=== PATIENT | male | born 1975 | race Caucasian/White ===

== ENCOUNTER 2018-02-05 14:39 | Emergency (ER) | payer OTHER ==
[~2018-02-05] VITALS: Ht 160 cm; Wt 901.3 kg
[2018-02-05 14:42] VITALS: BP 114/88; Ht 160 cm; Wt 901.3 kg
== END 2018-02-05 15:46 | disposition left against medical advice (07) ==
LOC: ED 14:39
DX: Z53.21 Procedure and treatment not carried out due to patient leaving prior to being seen by health care provider (principal)